=== PATIENT | female | born 1975 | race Caucasian/White ===

== ENCOUNTER 2017-11-11 09:37 | Emergency (ER) | payer MEDICAID ==
[2017-11-11] MEDS: KETOROLAC 30 MG INJ IM (11:33)
[2017-11-11 11:52] LABS: ADD UMIC YES; UR ASCORBIC ACID NEGATIVE (NEGATIVE); UR BACTERIA FEW /HPF (NONE SEEN); UR BILIRUBIN (Dip) NEGATIVE (NEGATIVE); UR BLOOD (Dip) 2+ mg/dL (NEGATIVE); UR CLARITY CLOUDY (CLEAR); UR COLOR YELLOW (YELLOW); UR GLUCOSE (Dip) NEGATIVE (NEGATIVE); UR KETONES (Dip) NEGATIVE (NEGATIVE); UR LEUKOCYTE ESTERASE (Dip) 1+ Leu/ul (NEGATIVE); UR MUCUS MODERATE /HPF (NONE SEEN); UR NITRITE (Dip) NEGATIVE (NEGATIVE); UR RBC 17 /HPF (0-5); UR SQUAMOUS EPITHELIAL CELL MANY /HPF (FEW); UR TOTAL PROTEIN (Dip) NEGATIVE (NEGATIVE); UR UROBILINOGEN (Dip) NEGATIVE (NEGATIVE); UR WBC 3 /HPF (0-5)
[2017-11-11] MEDS: predniSONE 20 MG TAB PO (12:52)
== END 2017-11-11 13:08 | disposition home or self-care (01) ==
LOC: FTE 09:37
DX: R10.31 Right lower quadrant pain (principal); M54.9 Dorsalgia, unspecified; R30.0 Dysuria; R10.2 Pelvic and perineal pain
CPT/HCPCS: 76830; 76856; 81001; 96372; 99285-25

== ENCOUNTER 2017-11-15 20:12 | Emergency (ER) | payer MEDICAID ==
[2017-11-16] MEDS: KETOROLAC 60 MG INJ IM (00:21)
== END 2017-11-16 01:28 | disposition home or self-care (01) ==
LOC: FTE 11-16 01:28
DX: M79.604 Pain in right leg (principal)
CPT/HCPCS: 73590; 73610-RT; 81025; 93971; 96372; 99285-25